=== PATIENT | male | born 1995 | race African-American/Black ===

== ENCOUNTER → 2018-10-17 11:54 | Outpatient (CLI) | payer OTHER, SELFPAY ==
--- NOTE | 2018-10-17 | DI.MRI.S_ITS ---
PROCEDURE: MR SHOULDER RT WO CON INDICATIONS: Rt shoulder pain TECHNIQUE: Noncontrast oblique coronal T2 fast spin echo with fat saturation, oblique sagittal T1 spin echo and T2 fast spin echo with fat saturation, axial T1 spin echo and T2 fast spin echo with fat saturation through the shoulder. COMPARISON: None. FINDINGS: Image quality: Excellent. Rotator cuff: The supraspinatus, infraspinatus, and subscapularis tendons appear intact throughout. The infraspinatus tendon is slightly thickened with increased internal signal compatible with mild tendinosis. Sagittal images demonstrate no muscle atrophy. Bones and bursae: No bone marrow contusions or fractures. No acromioclavicular joint degeneration. The acromion demonstrates conventional anatomy, without an os acromiale. No pathologic subacromial-subdeltoid or subcoracoid bursal fluid is present. Capsule and soft tissues: There is a tear of the posterior-superior labrum (series 6, image 9; series 8, image 14). There is a large, approximately 1.4 x 2.0 x 2.3 cm para-labral cyst associated with the posterior-superior labral tear. The para-labral cyst encroaches on the suprascapular notch and the spinoglenoid notch and likely results in neural impingement. There is edema in the infraspinatus musculature likely related to para-labral cyst neural impingement. In the absence of intra-articular contrast, the glenohumeral ligaments appear intact. The long head of the biceps tendon demonstrates normal location and morphology. The rotator interval appears normal, without fibrosis. The coracohumeral ligament is normal in thickness. IMPRESSION: 1. Posterior-superior labral tear with large para-labral cyst. 2. Large para-labral cyst encroaches on the right suprascapular notch and spinoglenoid notch likely causing neural impingement with associated right infraspinatus muscle edema. 3. Mild infraspinatus tendinosis. Dictated by: Renee Contreras MD, PhD on 10/17/2018 at 17:05 Approved by: Renee Contreras MD, PhD on 10/20/2018 at 14:51
== END ==
PROVIDERS: Visit Provider Nurse Practitioner Family
DX: S43.431A Superior glenoid labrum lesion of right shoulder, initial encounter (principal)
CPT/HCPCS: 73221